=== PATIENT | male | born 1995 | race African-American/Black ===

== ENCOUNTER 2023-06-12 21:42 | Emergency (ER) | payer BC ==
[~2023-06-12] VITALS: Ht 188 cm; Wt 74.8 kg
[2023-06-12] MEDS ORDERED: HYDROCODONE/APAP 5/325MG TABLET ONE (22:35)
[2023-06-12] MEDS: HYDROCODONE/APAP 5/325MG TABLET PO ONE (22:38)
[2023-06-13] MEDS ORDERED: ACET-2605 PO (00:08)
[2023-06-13] MEDS ORDERED: HYDR-3972 PO (00:08)
[2023-06-13] MEDS ORDERED: IBUP-1955 PO (00:08)
[2023-06-13 00:49] VITALS: BP 128/65; TEMP 98.2; O2SAT 99
== END 2023-06-13 00:50 | disposition home or self-care (01) ==
LOC: ER 21:53
DX: M79.602 Pain in left arm (principal); Z79.899 Other long term (current) drug therapy; Z88.1 Allergy status to other antibiotic agents
CPT/HCPCS: 73060-TC; 73090-TC